=== PATIENT | female | born 1995 | race Caucasian/White ===

== ENCOUNTER 2019-09-13 10:33 | Emergency (ER) | payer BC ==
[~2019-09-13] VITALS: Ht 154.9 cm; Wt 73.9 kg
[2019-09-13 11:27] LABS: ABSOLUTE EOSINOPHILS 0.1 thou/uL (0.0-0.7); ABSOLUTE LYMPHOCYTES 1.1 thou/uL (0.8-5.3); ABSOLUTE MONOCYTES 0.3 thou/uL (0.0-1.2); BASOPHILS 0.7 %; EOSINOPHILS 1.8 %; HEMATOCRIT 42.4 % (37.0-47.0); HEMOGLOBIN 14.9 gm/dL (12.0-15.0); LYMPHOCYTES 20.5 %; MCH 31.1 pg (26.0-34.0); MCHC 35.2 g/dL (28.0-37.0); MCV 88.2 fL (80.0-100.0); MONOCYTES 5.3 %; MPV 8.8 fl. (7.2-11.1); NUCLEATED RBCS 0 /100WBC; PLATELET COUNT* 187 thou/uL (150-400); POLYS 71.7 %; RBC 4.81 mil/uL (4.20-5.00); RDW-CV 13.4 % (10.5-14.5); WBC 5.6 thou/uL (4.0-11.0)
[2019-09-13 11:34] LABS: URINE BILIRUBIN NEGATIVE (Negative); URINE BLOOD NEGATIVE (Negative); URINE CLARITY CLEAR; URINE COLOR YELLOW; URINE GLUCOSE-RANDOM NEGATIVE (Negative); URINE KETONES NEGATIVE (Negative); URINE LEUKOCYTES-REFLEX 1+ (Negative); URINE NITRITE-REFLEX NEGATIVE (Negative); URINE PROTEIN NEGATIVE (Negative); URINE UROBILINOGEN 0.2 E.U./dl (0.2-1.0)
[2019-09-13 11:36] LABS: CREATININE 0.8 mg/dL (0.6-1.3); POTASSIUM 4.3 mmol/L (3.5-5.1)
[2019-09-13 11:40] LABS: ALBUMIN 3.9 g/dL (3.4-5.0); TOTAL BILIRUBIN 0.5 mg/dL (<0.1-1.0); TOTAL PROTEIN 7.3 g/dL (6.4-8.2)
[2019-09-13 11:41] LABS: AMP/METHAMP Negative (Negative); BARBITURATES Negative (Negative); BENZODIAZEPINES Negative (Negative); COCAINE Negative (Negative); METHADONE Negative (Negative); OPIATES Negative (Negative); PCP Negative (Negative); THC Negative (Negative)
[2019-09-13 11:42] LABS: BACTERIA-REFLEX None Seen /HPF (None Seen); CASTS None Seen /LPF (None Seen); CRYSTALS None Seen /LPF (None Seen); MUCUS None Seen strn/LPF (None Seen); SQUAMOUS 0-3 Few /LPF (0-3); URINE RBC 0-2 Rare /HPF (0-2); URINE WBC-REFLEX 0-5 Rare /HPF (0-5)
--- NOTE | 2019-09-13 11:47 | EKG ---
[place] [address] ELECTROCARDIOGRAM REPORT Name: MONA KHANNAANNAPadmini Ordaz Room: [facility]#: [id number] Admission: 09/13/19 Attend Phys: Discharge: Date of : 89 Date of Service: 09/13/19 1038 Report #: [id number] THIS REPORT FOR: //name// [facility] ED Test Date: 2019-09-13 Test Time: 10:38:44 Pat Name: PARUL KHANNA Department: Room: Gender: Embedded Developer: [facility] : 1995 Requested By: Nishant Hollingsworth Order Number: [id number] MD: Robert May Measurements Intervals [place] Rate: 85 P: 47 MI: 129 QRS: 65 QRSD: 88 T: 19 QT: 335 QTc: 399 Interpretive Statements Sinus rhythm No previous ECG available for comparison Electronically Signed On 09-13-2019 11:46:26 MORTGAGE ORIGINATOR by Robert May [email or web address] <ELECTRONICALLY SIGNED> By: Robert May MD, [facility] 09/13/19 1146 1038 1038 Robert May MD, FACC /EPI
[2019-09-13] MEDS ORDERED: VISTARIL 25 MG25 M1 PO (12:15)
[2019-09-13 12:31] VITALS: BP 121/69
== END 2019-09-13 12:32 | disposition home or self-care (01) ==
LOC: M.ERS 10:33
PROVIDERS: Physician Assistant
DX: F41.9 Anxiety disorder, unspecified (principal); R07.89 Other chest pain